=== PATIENT | male | born 1985 | race Caucasian/White ===

== ENCOUNTER 2022-06-01 11:07 | Inpatient (IN) | payer MEDICAID, OTHER ==
[~2022-06-01] VITALS: Ht 157.5 cm; Wt 86.7 kg
[~2022-06-01 11:07] MED LIST: ALBU6.7H9; GLIP5TAB12; METF500T
[2022-06-01] MEDS ORDERED: INSU100I28 SUBCUT (11:35)
[2022-06-01] MEDS ORDERED: CEFU500T41 PO (11:35)
[2022-06-01] MEDS ORDERED: PIPERACILLIN/TAZ 3.375G PREMIX 50 ML IV ONE (11:45)
[2022-06-01] MEDS ORDERED: VANCOMYCIN 1G PREMIX 200 ML IV ONE (11:45)
[2022-06-01 12:34] LABS: BASOPHILS % 0.2 % (0.0-2.0); EOSINOPHILS % 0.4 % (0.0-5.0); HEMATOCRIT. 35.9 % (42.0-52.0); LYMPHOCYTES % 10.1 % (20.0-50.0); MEAN CORPUSCULAR HEMOGLOBIN 28.5 pg (28.0-32.0); MEAN PLATELET VOLUME 6.9 fl (7.4-10.4); MONOCYTES % 5.1 % (2.0-8.0); NEUTROPHILS % 84.2 % (40.0-76.0); PLATELET 614 x1000/uL (130-400); RED BLOOD CELL COUNT 4.23 mill/uL (4.7-6.1); RED CELL DISTRIBUTION WIDTH 13.3 % (11.6-14.6)
[2022-06-01 12:44] LABS: INR 1.1; PROTHROMBIN TIME 12.1 sec (9.6-11.0)
[2022-06-01 12:45] LABS: CHLORIDE 99 mEq/L (98-107)
[2022-06-01] MEDS ORDERED: SODIUM CHLORIDE 0.9% 1000ML BAG (SEPSIS BOLUS) IV ONE (14:30)
[2022-06-01] MEDS ORDERED: HYDROCODONE/ACETAMINOPHEN 5/325MG TABLET PO PRN (20:15)
[2022-06-01] MEDS ORDERED: DEXTROSE 50% WATER 50ML SYRINGE IV PRN (20:15)
[2022-06-01] MEDS ORDERED: NALOXONE HCL 0.4MG/ML VIAL IV PRN (20:15)
[2022-06-01] MEDS: INSULIN LISPRO 100 UNITS/ML SUBCUT SCH (21:00)
[2022-06-01] MEDS: BLOOD SUGAR DIAGNOSTIC STRIP TEST SCH (21:00)
[2022-06-02] MEDS: LEVOFLOXACIN 500MG PREMIX 100 ML IV SCH (01:59)
[2022-06-02] MEDS: BLOOD SUGAR DIAGNOSTIC STRIP TEST SCH ×4 (06:30→21:00)
[2022-06-02] MEDS: INSULIN LISPRO 100 UNITS/ML SUBCUT SCH ×2 (12:00→21:00)
[2022-06-02] MEDS ORDERED: BUPIVACAINE HCL/PF 0.5% (5MG/ML) 10ML ONE (15:19)
[2022-06-02] MEDS ORDERED: LIDOCAINE HCL 1% 50ML VIAL (10MG/ML) ONE (15:19)
[2022-06-02] MEDS ORDERED: PROPOFOL 200MG/20ML VIAL IV ONE (15:47)
[2022-06-02] MEDS ORDERED: MIDAZOLAM HCL 2 MG/2 ML VIAL ONE (15:53)
[2022-06-02] MEDS ORDERED: FENTANYL CITRATE/PF 50MCG/ML 2ML VIAL ONE (16:07)
[2022-06-02] MEDS ORDERED: ONDANSETRON HCL 4MG/2ML INJ ONE (16:10)
[2022-06-02] MEDS ORDERED: CEFAZOLIN SODIUM 1000MG/VIAL ONE (16:10)
[2022-06-02] MEDS ORDERED: DEXAMETHASONE 4MG/ML 1ML VIAL ONE (16:10)
[2022-06-02] MEDS ORDERED: FENTANYL CITRATE/PF 50MCG/ML 2ML VIAL IV PRN (16:30)
[2022-06-02] MEDS ORDERED: HYDROMORPHONE HCL/PF 2MG/ML CPJ IV PRN (16:30)
[2022-06-02] MEDS ORDERED: SODIUM CHLORIDE 0.9% 1,000 ML IV SCH (16:30)
[2022-06-02] MEDS ORDERED: ATROPINE SULFATE 0.4MG/ML VIAL IV PRN (16:30)
[2022-06-02] MEDS ORDERED: KETOROLAC 30MG/ML VIAL ONE (16:31)
[2022-06-02] MEDS ORDERED: GENTAMICIN SULF 40MG/ML 2ML VIAL ONE (16:41)
[2022-06-02] MEDS ORDERED: VANCOMYCIN HCL 1 GM/VIAL ONE (16:41)
[2022-06-02 20:00] VITALS: BP 114/74
[2022-06-02] MEDS: VANCOMYCIN 1.25GM PMX (XELLIA) 250 ML IV SCH (22:56)
[2022-06-03] VITALS: BP 118/72
[2022-06-03] MEDS: LEVOFLOXACIN 500MG PREMIX 100 ML IV SCH ×2 (01:34→20:07)
[2022-06-03 04:00] VITALS: BP 116/70
[2022-06-03] MEDS: BLOOD SUGAR DIAGNOSTIC STRIP TEST SCH (07:20)
[2022-06-03] MEDS: INSULIN LISPRO 100 UNITS/ML SUBCUT SCH ×3 (07:50→18:41)
[2022-06-03] MEDS: VANCOMYCIN 1.25GM PMX (XELLIA) 250 ML IV SCH ×3 (09:34→22:09)
[2022-06-03] MEDS ORDERED: LEVOFLOXACIN 500MG PREMIX 100 ML IV SCH (12:00)
[2022-06-03] MEDS: INSULIN GLARGINE 100 UNITS/ML SUBCUT SCH (22:00)
[2022-06-04] MEDS: BLOOD SUGAR DIAGNOSTIC STRIP TEST SCH ×4 (07:20→21:05)
[2022-06-04] MEDS: INSULIN LISPRO 100 UNITS/ML SUBCUT SCH ×4 (07:50→21:02)
[2022-06-04] MEDS: VANCOMYCIN 1.25GM PMX (XELLIA) 250 ML IV SCH ×3 (08:43→21:05)
[2022-06-04] MEDS: INSULIN GLARGINE 100 UNITS/ML SUBCUT SCH ×2 (10:00→21:16)
[2022-06-04 16:00] VITALS: BP 120/79
[2022-06-04 16:13] LABS: BASOPHILS % 0.4 % (0.0-2.0); HEMATOCRIT. 28.4 % (42.0-52.0); HEMOGLOBIN. 9.3 g/dL (14.0-18.0); LYMPHOCYTES % 19.8 % (20.0-50.0); MEAN CORPUSCULAR VOLUME 85.4 fL (80.0-94.0); MEAN PLATELET VOLUME 6.7 fl (7.4-10.4); MONOCYTES % 7.6 % (2.0-8.0); NEUTROPHILS % 71.2 % (40.0-76.0); PLATELET 453 x1000/uL (130-400); RED BLOOD CELL COUNT 3.33 mill/uL (4.7-6.1); RED CELL DISTRIBUTION WIDTH 13.6 % (11.6-14.6)
[2022-06-04 20:00] VITALS: BP 124/75
[2022-06-04] MEDS: LEVOFLOXACIN 500MG PREMIX 100 ML IV SCH (20:03)
[2022-06-05 04:00] VITALS: BP 121/73
[2022-06-05] MEDS: BLOOD SUGAR DIAGNOSTIC STRIP TEST SCH ×4 (07:34→21:00)
[2022-06-05] MEDS: INSULIN LISPRO 100 UNITS/ML SUBCUT SCH ×4 (09:28→21:00)
[2022-06-05] MEDS: INSULIN GLARGINE 100 UNITS/ML SUBCUT SCH ×2 (09:28→22:00)
[2022-06-05 12:00] VITALS: BP 107/65
[2022-06-05 16:00] VITALS: BP 141/89
[2022-06-05] MEDS: LEVOFLOXACIN 250MG PREMIX 50 ML IV SCH (20:01)
[2022-06-06] MEDS: BLOOD SUGAR DIAGNOSTIC STRIP TEST SCH ×4 (07:20→21:00)
[2022-06-06] MEDS: INSULIN LISPRO 100 UNITS/ML SUBCUT SCH ×4 (07:50→21:00)
[2022-06-06] MEDS: INSULIN GLARGINE 100 UNITS/ML SUBCUT SCH ×2 (09:45→21:17)
[2022-06-06] MEDS ORDERED: VANCOMYCIN 1.25GM PMX (XELLIA) 250 ML IV NR (15:00)
[2022-06-06 16:00] VITALS: BP 108/64
[2022-06-06 20:00] VITALS: BP 135/80
[2022-06-06] MEDS: LEVOFLOXACIN 250MG PREMIX 50 ML IV SCH (21:00)
[2022-06-07] MEDS: BLOOD SUGAR DIAGNOSTIC STRIP TEST SCH ×4 (07:20→21:00)
[2022-06-07] MEDS: INSULIN LISPRO 100 UNITS/ML SUBCUT SCH ×4 (07:50→21:00)
[2022-06-07 08:00] VITALS: BP 124/68
[2022-06-07] MEDS: INSULIN GLARGINE 100 UNITS/ML SUBCUT SCH ×2 (09:02→22:00)
[2022-06-07] MEDS ORDERED: AMOX1TAB16 MT (10:26)
[2022-06-07] MEDS ORDERED: METR-167 MT (10:26)
[2022-06-07 12:00] VITALS: BP 113/69
[2022-06-07] MEDS: AMOXICILLIN/POTASSIUM CLAVULANATE 875/125MG TAB PO SCH ×2 (12:00→21:18)
[2022-06-07 16:00] VITALS: BP 112/59
[2022-06-07] MEDS: METRONIDAZOLE 500MG TABLET PO SCH (18:21)
[2022-06-07 20:00] VITALS: BP 123/74
[2022-06-08] MEDS: METRONIDAZOLE 500MG TABLET PO SCH ×3 (02:47→13:22)
[2022-06-08] MEDS: BLOOD SUGAR DIAGNOSTIC STRIP TEST SCH ×2 (07:20→13:19)
[2022-06-08] MEDS: INSULIN LISPRO 100 UNITS/ML SUBCUT SCH ×2 (07:50→12:50)
[2022-06-08 08:00] VITALS: BP 124/82
[2022-06-08] MEDS: AMOXICILLIN/POTASSIUM CLAVULANATE 875/125MG TAB PO SCH (09:06)
[2022-06-08] MEDS: INSULIN GLARGINE 100 UNITS/ML SUBCUT SCH (09:11)
[2022-06-08 12:00] VITALS: BP 112/73
[2022-06-08 16:00] VITALS: BP 109/69
[2022-06-08 16:25] VITALS: BP 109/69
== END 2022-06-08 16:44 | disposition home or self-care (01) | DRG 710 ==
LOC: ER 11:26 → MICUSO 14:56 → EDBEDREQTM 14:59 → EDBEDREQSVC 14:59 → EDBEDREQ 14:59 → 6EST 06-02 18:39
PROVIDERS: ADMIT Internal Medicine; ATTEND Internal Medicine
PROC: 0Y6M0Z9 Detachment at Right Foot, Partial 1st Ray, Open Approach (ICD-10-PCS; principal; 2022-06-02)
PROC: 0Y6M0ZB Detachment at Right Foot, Partial 2nd Ray, Open Approach (ICD-10-PCS; 2022-06-02)
PROC: 0Y6M0ZC Detachment at Right Foot, Partial 3rd Ray, Open Approach (ICD-10-PCS; 2022-06-02)
PROC: 0Y6M0ZD Detachment at Right Foot, Partial 4th Ray, Open Approach (ICD-10-PCS; 2022-06-02)
PROC: 0Y6M0ZF Detachment at Right Foot, Partial 5th Ray, Open Approach (ICD-10-PCS; 2022-06-02)
DX: A41.9 Sepsis, unspecified organism (principal); E87.2 Acidosis; E11.52 Type 2 diabetes mellitus with diabetic peripheral angiopathy with gangrene; E44.1 Mild protein-calorie malnutrition; E11.40 Type 2 diabetes mellitus with diabetic neuropathy, unspecified; M86.171 Other acute osteomyelitis, right ankle and foot; I96 Gangrene, not elsewhere classified; E11.65 Type 2 diabetes mellitus with hyperglycemia; L02.611 Cutaneous abscess of right foot; E11.69 Type 2 diabetes mellitus with other specified complication; Z20.822 Contact with and (suspected) exposure to COVID-19; E66.9 Obesity, unspecified; I10 Essential (primary) hypertension; M85.80 Other specified disorders of bone density and structure, unspecified site; R65.20 Severe sepsis without septic shock; Z68.35 Body mass index [BMI] 35.0-35.9, adult; Z91.19 Patient's noncompliance with other medical treatment and regimen; Z91.14 Patient's other noncompliance with medication regimen; Z59.00 Homelessness unspecified; Z79.4 Long term (current) use of insulin; Z89.411 Acquired absence of right great toe
CPT/HCPCS: 36415; 71045; 73620; 80048; 80053; 80202; 82962; 83605; 84145; 85025; 87070; 87075; 87076; 87077; 87186; 87426; 88311; 93005; 97162; 97535; 99291; C1893; C9803; J0690; J1100; J1580; J1815; J1885; J1956; J2250; J2405; J2543; J2704; J3010; J3370; J3490